=== PATIENT | female | born 1955 | race Caucasian/White ===

== ENCOUNTER 2016-07-30 19:02 | Emergency (ER) | payer OTHER ==
[2016-07-30] VITALS (7 sets, daily range): BP systolic 176–240; BP diastolic 80–112; PULSE 68–76; RESP 16–18; TEMP 98.2; O2SAT 98
[~2016-07-30] VITALS: Ht 160 cm; Wt 86.4 kg
[~2016-07-30 19:02] MED LIST: CARI350T19 PO; DICL75 PO; GABA600T PO; HYDR-3129 PO; HYDR-3535 PO; ISOS30TA3 PO; LISI10 PO; LORA1TAB PO; LOVA1TAB47 PO; METF500 PO; METO100T PO; PREV30CA36 PO; Z.0.COMMODE-3:1; Z.0.WALKERFRONT
--- NOTE | 2016-07-30 19:14 | PD ---
HPI Chief Complaint: Headache Time Seen by Provider: 19:14 Travel History International Travel<30 days: No Contact w/Intl Traveler<30days: No Traveled to known affect area: No History of Present Illness HPI 60-year-old female with PMH of DM, HLD, HTN presents to the ED for evaluation of 2 week history of intermittent headache. Described as "from the back of the head to the front of the head" rated 6/10 on presentation. Patient denies vision changes, dizziness, nausea or vomiting. Denies cold or flu symptoms, chest pain, palpitations, shortness of breath. Patient also complains of high blood pressure. She states that she has been seeing her primary care provider, had adjustments to her lisinopril last week and initiated clonidine patch today. PFSH Past Medical History Hx Anticoagulant Therapy: Yes (325 MG ASA DAILY) Arthritis: Yes Asthma: No Autoimmune Disease: No Anxiety: Yes Depression: Yes Heart Rhythm Problems: Yes (STATES SHE FEELS OCCASIONAL "PALPATATIONS") Cancer: No Cardiac Catheterization: Yes Cardiovascular Problems: Yes (HTN) High Cholesterol: Yes Chemotherapy: No Chest Pain: Yes Congestive Heart Failure: No COPD: No Cerebrovascular Accident: No Diabetes: Yes (TYPE 2) Diminished Hearing: No Deep Vein Thrombosis: Yes (kid) Endocrine: Yes Gastrointestinal Disorders: Yes (gerd) GERD: Yes Genitourinary: No Headaches: Yes Hepatitis: No Hiatal Hernia: Yes Hypertension: Yes Immune Disorder: No Kidney Stones: No Musculoskeletal: Yes (PAIN IN BACK AND LEGS / SCIATICA) Neurologic: Yes Psychiatric: Yes Reproductive: No Respiratory: Yes Migraines: No Radiation Therapy: No Renal Failure: No Seizures: No Sickle Cell Disease: No Sleep Apnea: Yes (CPAP) Thyroid Disease: No Ulcer: No ?: Not Menopausal: Yes : 1 Para: 1 Tubal Ligation: Yes Past Surgical History Abdominal Surgery: No AICD: No Arteriovenous Shunt: No Cardiac Surgery: Yes (HEART CATH 2010 2013) Ear Surgery: No Endocrine Surgery: No Eye Surgery: No Genitourinary Surgery: No Gynecologic Surgery: Yes (TUBAL LIGATION) Hysterectomy: No Insulin Pump: No Joint Replacement: No Oral Surgery: No Pacemaker: No Thoracic Surgery: No Other Surgery: Yes (SINUS SURGERY BILATERAL 1998) Social History Alcohol Use: Yes (occ) Tobacco Use: No Substance Use: No Allergies-Medications (Allergen,Severity, Reaction): Coded Allergies: Codeine (Verified Adverse Reaction, Severe, Nausea/Vomiting, 07/30/16) *MDRO Multi-Drug Resistant Organism (Unverified Adverse Reaction, Unknown , 07/30/16) MRSA (nose wound) - 10/2007 MRSA PCR Screen negative 10/30/14 & 08/21/2015 CLEARED BY INFECTION CONTROL Reported Meds & Prescriptions Reported Meds & Active Scripts Active Tylenol (Acetaminophen) 325 Mg Cap 650 Mg PO Q8HR PRN Reported Ativan (Lorazepam) 1 Mg Tab 1 Mg PO HS PRN Soma (Carisoprodol) 350 Mg Tab 350 Mg PO TID PRN Lortab (Hydrocodone-Acetaminophen) 10-325 Mg Tab 1 Tab PO BID PRN Lisinopril 20 Mg Tab 20 Mg PO BID Isosorbide Dinitrate 10 Mg Tab 15 Mg PO DAILY Metoprolol Tartrate 100 Mg Tab 100 Mg PO DAILY Lansoprazole 30 Mg Capdr 30 Mg PO DAILY Gabapentin 100 Mg Cap 100 Mg PO DAILY Lovastatin 40 Mg Tab 40 Mg PO DAILY Diclofenac Sodium DR (Diclofenac Sodium) 75 Mg Tabdr 75 Mg PO BID Metformin (Metformin HCl) 500 Mg Tab 500 Mg PO HS With a meal Metformin (Metformin HCl) 1,000 Mg Tab 1,000 Mg PO AC BREAKFAST With a meal [id number] HR Patch (Clonidine) 0.1 Mg/24 Hr Patch 1 Patch T-DERMAL Q7D Review of Systems Except as stated in HPI: all other systems reviewed are Neg Physical Exam Narrative GENERAL: Well-nourished, well-developed white female in no acute distress. SKIN: Warm and dry. HEAD: Normocephalic. Atraumatic. EYES: No scleral icterus. No injection or drainage. PERRLA. EOMI. FUNDISCOPIC EXAM: The bilateral fundiscopic exam appeared within normal limits without papilledema, A-V nicking or blood associated with the optic disc. Limited by nondilated pupils. ENT: Pearly bradshaw tympanic membranes bilaterally. Nasal mucosa is moist. Oropharynx without erythema, edema or exudate. DENTAL: No malocclusion. NECK: Supple, trachea midline. No JVD or lymphadenopathy. CARDIOVASCULAR: Regular rate and rhythm without murmurs, gallops, or rubs. No carotid bruits. 2+ DP and radial pulses bilaterally. RESPIRATORY: Breath sounds clear and equal bilaterally. No accessory muscle use. GASTROINTESTINAL: Abdomen soft, non-tender, nondistended. + Bowel sounds MUSCULOSKELETAL: No cyanosis, or edema. The patient is ambulatory and moves the extremities spontaneously.. NEUROLOGICAL: Awake and alert. Cranial nerves II through XII intact. Motor and sensory grossly within normal limits. 5/5 muscle strength in all muscle groups. Normal speech. BACK: Nontender without obvious deformity. No CVA tenderness. Data Data Last Documented VS Vital Signs Date Time Temp Pulse Resp B/P Pulse Ox O2 Delivery O2 Flow Rate FiO2 07/30/16 20:29 16 07/30/16 20:28 76 187/80 98 Room Air 07/30/16 19:05 98.2 Orders Ecg Monitoring (07/30/16 19:24) Iv Access Insert/Monitor (07/30/16 19:24) Oximetry (07/30/16 19:24) Sodium Chloride 0.9% Flush (Ns Flush) (07/30/16 19:30) Ketorolac Inj (Toradol Inj) (07/30/16 19:30) Prochlorperazine Inj (Compazine Inj) (07/30/16 19:30) Diphenhydramine Inj (Benadryl Inj) (07/30/16 19:30) Sodium Chlor 0.9% 1000 Ml Inj (Ns 1000 M (07/30/16 19:24) Complete Blood Count With Diff (07/30/16 19:31) Comprehensive Metabolic Panel (07/30/16 19:31) Ct Brain W/O Iv Contrast(Rout) (07/30/16 19:31) Sodium Chloride 0.9% Flush (Ns Flush) (07/30/16 19:45) Act Partial Throm Time (Ptt) (07/30/16 19:41) Prothrombin Time / Inr (Pt) (07/30/16 19:41) Labs Laboratory Tests Test 07/30/16 19:45 White Blood Count 8.1 TH/MM3 Red Blood Count 4.12 MIL/MM3 Hemoglobin 10.8 GM/DL Hematocrit 33.1 % Mean Corpuscular Volume 80.3 FL Mean Corpuscular Hemoglobin 26.1 PG Mean Corpuscular Hemoglobin 32.5 % Concent Red Cell Distribution Width 15.4 % Platelet Count 251 TH/MM3 Mean Platelet Volume 8.9 FL Neutrophils (%) (Auto) 63.5 % Lymphocytes (%) (Auto) 20.1 % Monocytes (%) (Auto) 6.4 % Eosinophils (%) (Auto) 9.2 % Basophils (%) (Auto) 0.8 % Neutrophils # (Auto) 5.2 TH/MM3 Lymphocytes # (Auto) 1.6 TH/MM3 Monocytes # (Auto) 0.5 TH/MM3 Eosinophils # (Auto) 0.7 TH/MM3 Basophils # (Auto) 0.1 TH/MM3 CBC Comment DIFF FINAL Differential Comment Prothrombin Time 10.4 SEC Prothromb Time International 0.9 RATIO Ratio Activated Partial 23.6 SEC Thromboplast Time Sodium Level 141 MEQ/L Potassium Level 4.4 MEQ/L Chloride Level 107 MEQ/L Carbon Dioxide Level 28.8 MEQ/L Anion Gap 5 MEQ/L Blood Urea Nitrogen 13 MG/DL Creatinine 0.57 MG/DL Estimat Glomerular Filtration 108 ML/MIN Rate Random Glucose 112 MG/DL Calcium Level 9.2 MG/DL Total Bilirubin 0.2 MG/DL Aspartate Amino Transf 16 U/L (AST/SGOT) Alanine Aminotransferase 25 U/L (ALT/SGPT) Alkaline Phosphatase 84 U/L Total Protein 6.7 GM/DL Albumin 3.8 GM/DL [facility] Medical Decision Making Medical Screen Exam Complete: Yes Emergency Medical Condition: Yes Differential Diagnosis Cephalgia versus migraine versus temporal arteritis versus TMJ versus hypertension versus less likely ICH versus other Narrative Course 60-year-old female with PMH of DM, HLD, HTN presents to the ED for evaluation of 2 week history of intermittent headache. Described as "from the back of the head to the front of the head" rated 6/10 on presentation. Patient denies vision changes, dizziness, nausea or vomiting. Denies cold or flu symptoms, chest pain, palpitations, shortness of breath. Patient also complains of high blood pressure. She states that she has been seeing her primary care provider, had adjustments to her lisinopril last week and initiated clonidine patch today. Vitals reviewed. Patient is hypertensive 240/112 on presentation. Physical exam reveals a nontoxic-appearing white female in no acute distress. ENT exam is unremarkable. No focal neural deficits. IV was established. Patient was place on continuous monitoring. Patient was administered Benadryl, Compazine and Toradol. CBC: WBC 8.1 Hgb 10.8 CMP: Unremarkable INR 0.9 CT of the head: No acute intracranial findings per radiology read. Recheck of the patient reveals improvement of her headache. BP 187/80. This patient with Dr. Kauffman. I discussed the results of the workup with the patient and her . I explained that the blood pressure was reasonable for discharge as well as the danger of lowering her blood pressure too quickly. Patient is instructed to resume normal medications upon discharge. Prescribed Tylenol as needed for headache, follow-up with the primary care provider. She indicated understanding of the instructions and is amenable to plan of care. She is stable and discharged home. Diagnosis Primary Impression: Cephalgia Qualified Code: R51 - Nonintractable episodic headache, unspecified headache type Additional Impression: Hypertension Qualified Code: I10 - Essential hypertension Referrals: Primary Care Physician Patient Instructions: Acute Headache (ED), Chronic Hypertension (ED), General Instructions Additional Instructions: Rest, hydrate. Avoid known stressors. Tylenol as prescribed, as needed for headache. Follow-up with the primary care provider regarding your chronic hypertension. Return to the ED for any urgent or emergent medical condition. Med/Other Pt SpecificInfo: Prescription(s) given Scripts Acetaminophen (Tylenol)325 Mg [id number] Mg PO Q8HR PRN (HEADACHE) #20 CAP Ref 0 Prov:Lucía Kauffman DO 07/30/16 Disposition: 01 DISCHARGE HOME Condition: Stable Quiana Drew Jul 30, 2016 19:14
[2016-07-30] MEDS ORDERED: SODIUM CHLOR 0.9% 1000 ML INJ 1,000 ML IV ONE (19:24)
[2016-07-30] MEDS ORDERED: LISI-515 PO (19:28)
[2016-07-30] MEDS ORDERED: DICL75TA PO (19:28)
[2016-07-30] MEDS ORDERED: LOVA40TA PO (19:28)
[2016-07-30] MEDS ORDERED: ISOS10TA PO (19:28)
[2016-07-30] MEDS ORDERED: LORA-474 PO (19:28)
[2016-07-30] MEDS ORDERED: METO100T PO (19:28)
[2016-07-30] MEDS ORDERED: LANS30CA PO (19:28)
[2016-07-30] MEDS ORDERED: METF500T PO (19:28)
[2016-07-30] MEDS ORDERED: GABA100C4 PO (19:28)
[2016-07-30] MEDS ORDERED: HYDR-3535 PO (19:28)
[2016-07-30] MEDS ORDERED: METF1000 PO (19:28)
[2016-07-30] MEDS ORDERED: SOMA350T PO (19:28)
[2016-07-30] MEDS ORDERED: CLON.1T T-DERMAL (19:28)
[2016-07-30] MEDS ORDERED: diphenhydrAMINE HCL 50 MG/ML VIAL IVP ONE (19:30)
[2016-07-30] MEDS ORDERED: SODIUM CHLORIDE 0.9% FLUSH 5 ML FLUSH IVF PRN ×2 (19:30→19:45)
[2016-07-30] MEDS ORDERED: PROCHLORPERAZINE INJ 10 MG/2 ML VIAL IVP ONE (19:30)
[2016-07-30] MEDS ORDERED: KETOROLAC TROMETHAMINE 30 MG/ML (IVP) VIAL IVP ONE (19:30)
[2016-07-30 19:55] LABS: AUTOMATED NEUTROPHIL # 5.2 TH/MM3 (1.8-7.7); BASOPHIL # 0.1 TH/MM3 (0-0.2); BASOPHIL % 0.8 % (0.0-2.0); EOSINOPHIL # 0.7 TH/MM3 (0-0.4); EOSINOPHIL % 9.2 % (0.0-4.0); HEMATOCRIT 33.1 % (35.0-46.0); HEMO FLAGS DIFF FINAL; LYMPH % 20.1 % (9.0-44.0); LYMPHOCYTE # 1.6 TH/MM3 (1.0-4.8); MEAN CELL VOLUME 80.3 FL (80.0-100.0); MEAN CORPUSCULAR HEMOGLOBIN 26.1 PG (27.0-34.0); MEAN CORPUSCULAR HGB CONC 32.5 % (32.0-36.0); MONO % 6.4 % (0.0-8.0); NEUT % 63.5 % (16.0-70.0); PLATELET COUNT 251 TH/MM3 (150-450); RED BLOOD COUNT 4.12 MIL/MM3 (4.00-5.30); RED CELL DISTRIBUTION WIDTH 15.4 % (11.6-17.2); WHITE BLOOD COUNT 8.1 TH/MM3 (4.0-11.0)
[2016-07-30 20:14] LABS: APTT (PATIENT) 23.6 SEC (24.3-30.1); INTERNATIONAL NORMALIZED RATIO 0.9 RATIO; PROTHROMBIN TIME - PATIENT 10.4 SEC (9.8-11.6)
--- NOTE | 2016-07-30 20:20 | RADRPT ---
EXAM DATE/TIME: 07/30/2016 20:05 [facility] COMPARISON: No previous studies available for comparison. INDICATIONS : Intermittent headache X 2 weeks. RADIATION DOSE: 36.33 CTDIvol (mGy) MEDICAL HISTORY : Cardiovascular disease. Hypertension. Deep venous thrombosis.Diabetes. SURGICAL HISTORY : Tubal ligation. ENCOUNTER: Initial ACUITY: 2 weeks PAIN SCALE: 8/10 LOCATION: cranial TECHNIQUE: Multiple contiguous axial images were obtained of the head. Using automated exposure control and adj ustment of the mA and/or kV according to patient size, radiation dose was kept as low as reasonably a chievable to obtain optimal diagnostic quality images. FINDINGS: CEREBRUM: The ventricles are normal for age. No evidence of midline shift, mass lesion, hemorrhage or acute in farction. No extra-axial fluid collections are seen. POSTERIOR FOSSA: The cerebellum and brainstem are intact. The 4th ventricle is midline. The cerebellopontine angle i s unremarkable. EXTRACRANIAL: The visualized portion of the orbits is intact. There is minimal fluid in the left maxillary sinus. SKULL: The calvaria is intact. No evidence of skull fracture. CONCLUSION: No acute intracranial findings. Tobias Hook MD on July 30, 2016 at 20:18 Board Certified Radiologist. This report was verified electronically.
[2016-07-30 20:22] LABS: ANION GAP 5 MEQ/L (5-15); AST (GOT) 16 U/L (15-37); BICARBONATE 28.8 MEQ/L (21.0-32.0); BLOOD UREA NITROGEN 13 MG/DL (7-18); CHLORIDE 107 MEQ/L (98-107); GLOMERULAR FILTRATION RATE 108 ML/MIN (>89); POTASSIUM 4.4 MEQ/L (3.5-5.1); SODIUM (NA) 141 MEQ/L (136-145)
[2016-07-30 20:25] LABS: ALKALINE PHOSPHATASE 84 U/L (45-117); ALT (GPT) 25 U/L (10-53); TOTAL BILIRUBIN ADULT 0.2 MG/DL (0.2-1.0)
[2016-07-30] MEDS ORDERED: ACET1CAP18 PO (20:40)
== END 2016-07-30 21:09 | disposition home or self-care (01) ==
LOC: NEPA 19:02
DX: R51 Headache (principal); I10 Essential (primary) hypertension; E11.9 Type 2 diabetes mellitus without complications; E78.00 Pure hypercholesterolemia, unspecified; K21.9 Gastro-esophageal reflux disease without esophagitis; G47.30 Sleep apnea, unspecified; Z86.718 Personal history of other venous thrombosis and embolism; Z79.01 Long term (current) use of anticoagulants
CPT/HCPCS: 70450; 80053; 85025; 85610; 85730; 96361; 96374; 96375; 99284; J0780; J1200; J1885; J7030

== ENCOUNTER → 2016-12-12 | Outpatient (CLI) | payer OTHER ==
[~2016-12-12] MED LIST changes: +ACET1CAP18 PO; -CARI350T19 PO; +CLON.1T T-DERMAL; -DICL75 PO; +DICL75TA PO; +GABA100C4 PO; -GABA600T PO; -HYDR-3129 PO; +ISOS10TA PO; -ISOS30TA3 PO; +LANS30CA PO; +LISI-515 PO; -LISI10 PO; +LORA-474 PO; -LORA1TAB PO; -LOVA1TAB47 PO; +LOVA40TA PO; +METF1000 PO; -METF500 PO; +METF500T PO; -PREV30CA36 PO; +SOMA350T PO; -Z.0.COMMODE-3:1; -Z.0.WALKERFRONT
[2016-12-12 08:43] LABS: AUTOMATED NEUTROPHIL # 3.3 TH/MM3 (1.8-7.7); BASOPHIL # 0.1 TH/MM3 (0-0.2); BASOPHIL % 1.1 % (0.0-2.0); EOSINOPHIL # 0.4 TH/MM3 (0-0.4); EOSINOPHIL % 7.7 % (0.0-4.0); HEMATOCRIT 36.2 % (35.0-46.0); HEMO FLAGS DIFF FINAL; LYMPH % 25.2 % (9.0-44.0); LYMPHOCYTE # 1.4 TH/MM3 (1.0-4.8); MEAN CELL VOLUME 85.3 FL (80.0-100.0); MEAN CORPUSCULAR HEMOGLOBIN 27.1 PG (27.0-34.0); MEAN CORPUSCULAR HGB CONC 31.8 % (32.0-36.0); MONO % 8.4 % (0.0-8.0); NEUT % 57.6 % (16.0-70.0); PLATELET COUNT 216 TH/MM3 (150-450); RED BLOOD COUNT 4.24 MIL/MM3 (4.00-5.30); RED CELL DISTRIBUTION WIDTH 14.9 % (11.6-17.2); WHITE BLOOD COUNT 5.7 TH/MM3 (4.0-11.0)
[2016-12-12 08:47] LABS: MICRO ALBUMIN RANDOM URINE RAW 14.8 MG/L (0.0-30.0)
[2016-12-12 08:59] LABS: ALKALINE PHOSPHATASE 85 U/L (45-117); ALT (GPT) 36 U/L (10-53); ANION GAP 7 MEQ/L (5-15); AST (GOT) 29 U/L (15-37); BICARBONATE 27.8 MEQ/L (21.0-32.0); BLOOD UREA NITROGEN 14 MG/DL (7-18); CHLORIDE 104 MEQ/L (98-107); GLOMERULAR FILTRATION RATE 74 ML/MIN (>89); GLUCOSE,FASTING 121 MG/DL (74-99); HDL CHOLESTEROL 39.7 MG/DL (40.0-60.0); LDL CHOLESTEROL 104 MG/DL (0-99); POTASSIUM 4.5 MEQ/L (3.5-5.1); SODIUM (NA) 139 MEQ/L (136-145); TOTAL BILIRUBIN ADULT 0.2 MG/DL (0.2-1.0)
[2016-12-12 17:51] LABS: HEMOGLOBIN A1a 1.4 %; HEMOGLOBIN Ao 83.2 %; HEMOGLOBIN LA1C 2.2 %; HEMOGLOBIN P3 3.9 %
== END ==
LOC: CLAB 07:42
PROVIDERS: ATTEND Family Medicine
DX: Z00.00 Encounter for general adult medical examination without abnormal findings (principal); E11.9 Type 2 diabetes mellitus without complications
CPT/HCPCS: 36415; 80053; 80061; 82043; 83036; 84443; 85025